=== PATIENT | male | born 1990 | race Caucasian/White ===

== ENCOUNTER 2016-07-09 14:35 | Emergency (ER) | payer MEDICAID, OTHER ==
[~2016-07-09] VITALS: Ht 180.3 cm; Wt 61.0 kg
[~2016-07-09 14:35] MED LIST: ALBU8.5H5 INH; IBUP-1222 PO; ONDA4TAB10 PO
[2016-07-09 16:01] LABS: BLOOD UREA NITROGEN 9 mg/dL (7-18)
[2016-07-09 17:14] LABS: IS PT STATUS REG ER OR PRE ER? YES
[2016-07-09 17:54] VITALS: BP 120/79
== END 2016-07-09 17:56 | disposition home or self-care (01) ==
LOC: ED 17:12
DX: R20.0 Anesthesia of skin (principal); R07.89 Other chest pain; J45.909 Unspecified asthma, uncomplicated; F12.10 Cannabis abuse, uncomplicated; F17.210 Nicotine dependence, cigarettes, uncomplicated
CPT/HCPCS: 36415; 70450; 80048; 82040; 84484; 85025; 85651; 93005

== ENCOUNTER 2017-03-12 13:31 | Emergency (ER) | payer OTHER ==
[~2017-03-12] VITALS: Ht 180.3 cm; Wt 65.1 kg
[2017-03-12 13:32] VITALS: BP 128/96
== END 2017-03-12 14:38 | disposition home or self-care (01) ==
LOC: ED 14:32
DX: Z02.89 Encounter for other administrative examinations (principal); S39.012A Strain of muscle, fascia and tendon of lower back, initial encounter; X58.XXXA Exposure to other specified factors, initial encounter; Y93.89 Activity, other specified; Y92.89 Other specified places as the place of occurrence of the external cause; Y99.8 Other external cause status; J45.909 Unspecified asthma, uncomplicated
CPT/HCPCS: 99281

== ENCOUNTER 2019-11-13 15:40 | Emergency (ER) | payer MEDICAID, OTHER ==
[~2019-11-13] VITALS: Ht 180.3 cm; Wt 60.0 kg
--- NOTE | 2019-11-13 15:50 | NUR ---
vesicular rash to tongue palms/arms/face x 1-2 days
[2019-11-13] MEDS ORDERED: hydrOXyzine 50MG TABLET ONE (16:13)
[2019-11-13 16:22] LABS: BASOPHILS # (AUTO) 0.03 x10^3/uL (0-0.1); BASOPHILS % (AUTO) 0 % (0-1); EOSINOPHILS # (AUTO) 0.06 x10^3/uL (0-0.4); EOSINOPHILS % (AUTO) 1 % (1-7); LYMPHOCYTES # (AUTO) 2.14 x10^3/uL (1-3.4); LYMPHOCYTES % (AUTO) 29 % (22-44); MD NO; MEAN CORPUSCULAR HEMOGLOBIN 30.6 pg (27.5-34.5); MEAN CORPUSCULAR HGB CONC 33.4 g/dL (33.2-36.2); MEAN PLATELET VOLUME 8.3 fL (7.4-10.4); MONOCYTES # (AUTO) 0.47 x10^3/uL (0.2-0.8); MONOCYTES % (AUTO) 6 % (2-9); NEUTROPHILS # (AUTO) 4.65 x10^3/uL (1.8-6.8); NEUTROPHILS % (AUTO) 63 % (42-75); PLATELET COUNT 249 x10^3/uL (130-400); RED BLOOD COUNT 5.81 x10^6/uL (4.38-5.82); RED CELL DISTRIBUTION WIDTH 13.7 % (9.4-14.8)
--- NOTE | 2019-11-13 16:32 | NUR ---
MEDICATED PER EMAR
[2019-11-13 16:59] VITALS: BP 125/92
--- NOTE | 2019-11-13 17:01 | NUR ---
With reassessment patient reports "I feel less itchy, my tongue lesion is less painful too" Provider made aware
--- NOTE | 2019-11-13 17:17 | NUR ---
LAB CALLED TO EXPEDITE CHEMISTRY RESULTS Addendum: 11/13/19 at 1720 by [email or web address] they will run sample now and post test results andreia
[2019-11-13] MEDS ORDERED: IBUPROFEN 200 MG TABLET ONE (17:26)
--- NOTE | 2019-11-13 17:29 | NUR ---
medicated per emar with motrin for pain associated with rash
[2019-11-13 17:30] LABS: CHLORIDE 105 mmol/L (98-107)
[2019-11-13] MEDS ORDERED: IBUPROFEN 200 MG TABLET PO ONE (17:30)
[2019-11-13 17:36] LABS: ALANINE AMINOTRANSFERASE 22 U/L (12-78); ALBUMIN 4.3 g/dL (3.4-5.0); ALKALINE PHOSPHATASE 52 U/L (45-117); ANION GAP 9 mmol/L (5-15); BILIRUBIN,TOTAL 0.9 mg/dL (0.2-1.0); CALCIUM 9.8 mg/dL (8.5-10.1); CREATININE 1.08 mg/dL (0.7-1.3); TOTAL PROTEIN 8.6 g/dL (6.4-8.2)
== END 2019-11-13 18:12 | disposition home or self-care (01) ==
LOC: ED 17:45
DX: R21 Rash and other nonspecific skin eruption (principal); F17.210 Nicotine dependence, cigarettes, uncomplicated
CPT/HCPCS: 36415; 80053; 85025; 86592; 99283; Q0177